=== PATIENT | female | born 1960 | race Caucasian/White ===

== ENCOUNTER → 2017-12-19 | Outpatient (REF) | payer OTHER | LOC: ZZSENDIN 15:06 | PROVIDERS: ATTEND Physician Assistant | DX: Z00.00 Encounter for general adult medical examination without abnormal findings (principal) | CPT/HCPCS: 82465; 83718; 84478 ==

== ENCOUNTER → 2018-07-10 | Outpatient (CLI) | payer OTHER ==
--- NOTE | 2018-07-10 16:48 | RADIOLOGY IMAGING REPORT ---
FACILITY: [facility] PATIENT NAME: Krystle Salcedo : 1960 MR: [id number] V: [id number] EXAM DATE: ORDERING PHYSICIAN: SIMI MCQUEEN TECHNOLOGIST: Location: [facility] [place] Patient: Krystle Salcedo : 1960 Visit/Account:[id number] Date of Sevice: 07/10/2018 Exam type: FOOT 2 VIEW RIGHT History: Contusion on right foot, no known injury Comparison: None. Findings: Two views the right foot demonstrates no gross evidence of acute fracture or dislocation. There is m edial bowing of the distal phalanges of the right fifth toe and to lesser extent right fourth toe. N o radiopaque soft tissue foreign bodies are seen. No soft tissue gas is identified IMPRESSION: 1. Medial bowing of the distal phalanges of the right fifth toe and to lesser extent right fourth to e likely chronic. There is no associated soft tissue swelling, foreign body or soft tissue gas Report Dictated By: Louise Moura MD at 07/10/2018 4:42 PM Report E-Signed By: Louise Moura MD at 07/10/2018 4:44 PM WSN:[id number]
== END ==
LOC: RAD 15:57
PROVIDERS: ATTEND Physician Assistant
DX: S90.31XA Contusion of right foot, initial encounter (principal)